=== PATIENT | male | born 1975 | race Caucasian/White ===

== ENCOUNTER 2018-05-26 20:09 | Emergency (ER) | payer MEDICAID, SELFPAY ==
[~2018-05-26] VITALS: Ht 177.8 cm; Wt 70.7 kg
[2018-05-26] MEDS ORDERED: LIDOCAINE-MPF 1%, 5ML INFIL ONE (20:30)
[2018-05-26 21:43] VITALS: BP 135/78
== END 2018-05-26 21:45 | disposition home or self-care (01) ==
LOC: ED 21:20
DX: M67.40 Ganglion, unspecified site (principal)
CPT/HCPCS: 99281

== ENCOUNTER 2019-09-08 11:08 | Emergency (ER) | payer MEDICAID ==
[~2019-09-08] VITALS: Ht 177.8 cm; Wt 66.2 kg
[2019-09-08 11:19] VITALS: BP 158/83
[2019-09-08] MEDS ORDERED: LIDOCAINE 1%-EPI 1:100K, 20ML ONE (11:37)
[2019-09-08] MEDS ORDERED: NEOSPORIN OINT. PKT 1 PACKET ONE (12:28)
== END 2019-09-08 13:13 | disposition home or self-care (01) ==
LOC: ED 11:51
DX: L72.3 Sebaceous cyst (principal); F17.200 Nicotine dependence, unspecified, uncomplicated
CPT/HCPCS: 10060; 99281; 99282

== ENCOUNTER 2019-09-15 15:55 | Emergency (ER) | payer MEDICAID ==
[~2019-09-15] VITALS: Ht 177.8 cm; Wt 65.3 kg
[2019-09-15 16:14] VITALS: BP 116/81
== END 2019-09-15 18:53 | disposition home or self-care (01) ==
LOC: ED 17:02
DX: S01.81XD Laceration without foreign body of other part of head, subsequent encounter (principal); F17.200 Nicotine dependence, unspecified, uncomplicated; X58.XXXD Exposure to other specified factors, subsequent encounter
CPT/HCPCS: 99281

== ENCOUNTER 2020-05-08 16:30 | Emergency (ER) | payer MEDICAID ==
[~2020-05-08] VITALS: Ht 177.8 cm; Wt 67.0 kg
[2020-05-08 16:32] VITALS: BP 137/84
[2020-05-08] MEDS ORDERED: HYDROcodone/APAP 5/325 TABLET PO STA (17:22)
[2020-05-08] MEDS ORDERED: AMOXICILLIN/CLAV 875-125MG TABLET PO STA (17:22)
[2020-05-08] MEDS ORDERED: HYDROcodone/APAP 5/325 TABLET ONE (17:43)
[2020-05-08] MEDS ORDERED: AMOXICILLIN/CLAV 875-125MG TABLET ONE (17:46)
== END 2020-05-08 17:55 | disposition home or self-care (01) ==
LOC: ED 17:07
DX: K02.9 Dental caries, unspecified (principal); R22.0 Localized swelling, mass and lump, head; F17.210 Nicotine dependence, cigarettes, uncomplicated
CPT/HCPCS: 99406